=== PATIENT | male | born 1975 | race Caucasian/White ===

== ENCOUNTER 2019-03-12 14:16 | Inpatient (IN) | payer MEDICARE, SELFPAY ==
[2019-03-12] VITALS (8 sets, daily range): BP systolic 149–174; BP diastolic 76–107; PULSE 79–97; RESP 17–22; TEMP 36.6–36.9; O2SAT 93–99; BMI 35.5; BMI 35.9; BMI 36.0
--- NOTE | 2019-03-12 14:19 | EKG12_ITS ---
Test Reason : CP Blood Pressure : / mmHG Vent. Rate : 068 BPM Atrial Rate : 068 BPM P-R Int : 126 ms QRS Dur : 112 ms QT Int : 424 ms P-R-T Axes : 011 022 038 degrees QTc Int : 450 ms Normal sinus rhythm Normal ECG Confirmed by PRETTY MACIAS, PRISCA ([id number]), market editor SAMANTHA MARINA ([id number]) on 03/14/2019 9:43:50 AM Referred By: LATESHA Confirmed By:PRISCA OLSEN MD
[2019-03-12 14:44] LABS: Absolute Lymphocyte Count 1.31 X10^3/uL (0.83-4.51); Absolute Neutrophil Count 16.3 X10^3/uL (2.0-7.7); Basophil# 0.07 X10^3/uL; Basophil% 0.4 % (0-1); Eosinophil# 0.02 X10^3/uL; Eosinophils% 0.1 % (0-5); Hematocrit 48.9 % (40-54); Hemoglobin 16.6 g/dL (13.0-16.5); Lymphocyte # 1.31 X10^3/ul (4.0); Lymphocyte % 7.1 % (19-41); Mean Corp Hgb Conc 33.9 g/dL (32-36); Mean Corpuscular Hgb 29.5 pg (27.0-32.0); Mean Corpuscular Volume 86.9 fL (80-94); Mean Platelet Vol. 10.6 fl (6.2-12.0); Monocyte# 0.78 X10^3/uL; Monocyte% 4.2 % (0-10); NRBC Flagged by Analyzer 0 % (0-5); Neutrophil # 16.27 X10^3/uL (2.7-7.7); Neutrophil % 87.9 % (47-70); Platelet Count 318 K/mm3 (150-450); RBC Distribution Width CV 12.9 % (11.6-14.6); RBC Distribution Width SD 40.4 fl (35.1-43.9); Red Blood Count 5.63 M/mm3 (4.6-6.2); White Blood Count 18.5 K/mm3 (4.4-11.0)
--- NOTE | 2019-03-12 15:05 | RAD_ITS ---
STUDY: X-RAY CHEST REASON FOR EXAM: Male, 44 years old. EPIGASTRIC CHEST PAIN TECHNIQUE: AP COMPARISON: None. FINDINGS: The lungs are clear and expanded. There is no demonstrated pleural abnormality. Normal size heart. Normal mediastinum and rebecca. Normal visualized pulmonary arteries. Normal visualized aortic arch and descending thoracic aorta. Normal visualized thoracic spine. Normal visualized ribs, clavicles, and shoulders. There is no demonstrated abnormality of the visualized soft tissue structures of the upper abdomen. RAD/Chest 1 View (Portable) IMPRESSION: Nonacute portable x-ray examination of the chest. Electronically Signed: Syd Welsh MD (Brooks) at 15:51 EST , Service support ,
[2019-03-12 15:08] LABS: Anion Gap 4 (5-15); BUN 8 mg/dL (7-18); BUN/Creat Ratio 8.2 RATIO (10-20); Calcium,Total 9.1 mg/dL (8.5-10.1); Chloride 108 mmol/L (98-107); Creatinine, Serum 0.98 mg/dL (0.70-1.30); EST Glomerular Filtration Rate 88 mL/min (>60); Est Glom Filt Rate - Afr Amer 107 mL/min (>60); Estimated Creatinine Clearance 93.06 ml/min; Glucose 130 mg/dL (74-106); Potassium 4.4 mmol/L (3.5-5.1); Sodium Level 141 mmol/L (136-145)
--- NOTE | 2019-03-12 15:09 | CT_ITS ---
STUDY: CT ABDOMEN AND PELVIS WITH CONTRAST REASON FOR EXAM: Male, 44 years old. EPIGASTRIC PAIN TODAY RADIATION DOSAGE (If Supplied By Facility): CTDIvol = ( 20.10 ) mGy, DLP = ( 1330.79 ) mGycm TECHNIQUE: Transaxial images were obtained from the dome of the diaphragm to the symphysis pubis without oral contrast. IV 100mL Isovue-300 was administered. Sagittal and coronal images were reconstructed. Individualized dose optimization techniques were used for this CT. COMPARISON: None. FINDINGS: The visualized lung bases are unremarkable. The visualized portions of the heart are within normal limits. Normal liver. There are gallstones but no gallbladder wall thickening. Normal spleen. Normal pancreas. Normal bilateral adrenal glands. Normal right kidney. Normal left kidney. Normal visualized stomach. Normal small intestine. The colon is largely decompressed (transverse/descending) without evidence of pericolonic stranding. There is non-visualization of the appendix. Normal abdominal aorta. Normal inferior vena cava. Normal retroperitoneum. Circumferential wall thickening with trace amount of pericystic induration may suggest cystitis. There is a small fat-containing inguinal hernias. Small periumbilical fat-containing hernia. There are diffuse degenerative changes of the visualized lumbar spine. CT/Abdomen/Pelvis W IV Cont ONLY IMPRESSION: 1. Circumferential wall thickening of the urinary bladder with mild pericystic induration suggesting cystitis. Correlation with urinalysis recommended. 2. Gallstones without CT evidence of acute cholecystitis. 3. Limited evaluation of the transverse and descending colon due to lack of distention. No pericolonic stranding/inflammation seen. Electronically Signed: Syd Welsh MD (Brooks) at 16:16 EST , Service support ,
--- NOTE | 2019-03-12 15:13 | ED.DCSUM_ITS ---
History of Present Illness Narrative: 44-year-old male presents with concern for epigastric pain. States it began approximately 4 hours ago. States that it was after he ate a meal of ham, eggs, and toast. States it is sharp in nature and is gotten progressively worse. Denies any chest pain or shortness of breath. Admits to diaphoresis. Some nausea and vomiting. Denies any constipation or diarrhea. Denies any urinary symptoms. Denies any trauma. She is deaf but is signing through a family member. <Scotty Coburn - Last Filed: 03/12/19 18:15> <Tushar Lawton - Last Filed: 03/12/19 20:22> Chief Complaint: Chest Pain Past Medical History Prior records reviewed: Yes Past Medical History: None Surgical History: no surgical history Alcohol: None Drugs: None <Scotty Coburn - Last Filed: 03/12/19 18:15> <Tushar Lawton - Last Filed: 03/12/19 20:22> - Allergies and Home Meds Allergies/Adverse Reactions: Allergies No Known Allergies Allergy (Verified 03/12/19 14:17) Primary Care Physician: NOT,DEFINED [NON-STAFF] - Review of Systems General: Reports: Sweats. Denies: Chills, Fever Eyes: Denies: Visual changes - bilaterally, Diplopia ENT: Denies: Rhinorrhea, Sore throat Cardiovascular: Denies: Chest pain, Palpitations Respiratory: Denies: Dyspnea, Cough, Dyspnea on exertion Gastrointestinal: Reports: Abdominal pain, Nausea, Vomiting. Denies: Diarrhea, Melena, Hematochezia Genitourinary: Denies: Dysuria, Hematuria, Frequency Musculoskeletal: Denies: Back pain, Extremity Pain Skin: Denies: Rash, Wounds Neurological: Denies: Headache, Weakness, Numbness <Scotty Coburn - Last Filed: 03/12/19 18:15> Physical Exam Vital Signs/Narrative: Vital Signs Temp Pulse Resp BP Pulse Ox 03/12/19 14:17 97.9 F 79 18 166/107 H 99 Inital Vital Signs reviewed: Yes General: Well nourished, Well developed, Acute Distress Head: Normocephalic, Atraumatic Eyes: Perrl, EOMI ENT: Moist mucous membranes, No rhinorrhea Neck: Supple, Nontender Cardiovascular: Regular rate, Regular rhythm, No murmurs Respiratory: No distress, CTA bilaterally, Chest nontender Abdomen: Soft, Nondistended, Normal bowel sounds, Tender Back: Nontender, Normal Inspection Extremities: Nontender, No edema Skin: Normal color, No rash Neurological: Alert, Oriented x3, Cranial nerves II-XII grossly intact, Normal Strength, Normal Sensation Psychological: Normal affect, Normal Mood <Scotty Coburn - Last Filed: 03/12/19 18:15> Vital Signs/Narrative: Vital Signs Pulse Resp BP Pulse Ox 03/12/19 19:18 83 17 155/79 H 99 03/12/19 17:38 90 18 149/97 H 96 03/12/19 17:08 82 19 H 174/92 H 99 <Tushar Lawton - Last Filed: 03/12/19 20:22> Diagnostic/Tx/Re-eval Impressions Chest X-Ray 03/12/19 15:05 IMPRESSION: Nonacute portable x-ray examination of the chest. Electronically Signed: Syd Welsh MD (Brooks) at 15:51 EST , Service support , Abdomen/Pelvis CT 03/12/19 15:09 IMPRESSION: 1. Circumferential wall thickening of the urinary bladder with mild pericystic induration suggesting cystitis. Correlation with urinalysis recommended. 2. Gallstones without CT evidence of acute cholecystitis. 3. Limited evaluation of the transverse and descending colon due to lack of distention. No pericolonic stranding/inflammation seen. Electronically Signed: Syd Welsh MD (Brooks) at 16:16 EST , Service support , 03/12/19 15:05 Chest 1 View (Portable) [RAD] Stat 03/12/19 15:09 CT Abd [Abdomen/Pelvis W IV Cont ONLY] [CT] Stat 03/12/19 16:28 Abdomen Limited [US] Stat Laboratory Results 03/12/19 03/12/19 03/12/19 14:36 14:36 14:39 WBC 18.5 H RBC 5.63 Hgb 16.6 H Hct 48.9 MCV 86.9 MCH 29.5 MCHC 33.9 RDW Std Deviation 40.4 RDW Coeff of Bimal 12.9 Plt Count 318 MPV 10.6 Immature Gran % (Auto) 0.300 Neut % (Auto) 87.9 H Lymph % (Auto) 7.1 L [place] % (Auto) 4.2 Eos % (Auto) 0.1 Baso % (Auto) 0.4 Absolute Neuts (auto) 16.3 H Absolute Lymphs (auto) 1.31 Nucleated RBC % 0 Sodium 141 Potassium 4.4 Chloride 108 H Carbon Dioxide 29.0 Anion Gap 4 L BUN 8 Creatinine 0.98 Estim Creat Clear Calc 93.06 Est GFR (MDRD) Af Amer 107 Est GFR (MDRD) Non-Af 88 BUN/Creatinine Ratio 8.2 L Glucose 130 H Calcium 9.1 Total Bilirubin 1.40 H Direct Bilirubin 0.20 AST 29 ALT 19 Alkaline Phosphatase 86 Troponin I < 0.015 Total Protein 7.7 Albumin 4.0 Globulin 3.7 Lipase 69 L Urine Color Urine Clarity Urine pH Ur Specific [place] Urine Protein Urine Glucose (UA) Urine Ketones Urine Occult Blood Urine Nitrite Urine Bilirubin Urine Urobilinogen Ur Leukocyte Esterase Urine RBC Urine WBC Ur Squamous Epith Cells Urine Bacteria Urine Mucus 03/12/19 17:32 WBC RBC Hgb Hct MCV MCH MCHC RDW Std Deviation RDW Coeff of Bimal Plt Count MPV Immature Gran % (Auto) Neut % (Auto) Lymph % (Auto) [place] % (Auto) Eos % (Auto) Baso % (Auto) Absolute Neuts (auto) Absolute Lymphs (auto) Nucleated RBC % Sodium Potassium Chloride Carbon Dioxide Anion Gap BUN Creatinine Estim Creat Clear Calc Est GFR (MDRD) Af Amer Est GFR (MDRD) Non-Af BUN/Creatinine Ratio Glucose Calcium Total Bilirubin Direct Bilirubin AST ALT Alkaline Phosphatase Troponin I Total Protein Albumin Globulin Lipase Urine Color Yellow Urine Clarity Sl. Cloudy Urine pH 5.0 Ur Specific [place] 1.010 Urine Protein Negative Urine Glucose (UA) Normal Urine Ketones Negative Urine Occult Blood Negative Urine Nitrite Negative Urine Bilirubin Negative Urine Urobilinogen Normal Ur Leukocyte Esterase Negative Urine RBC 0 SEEN Urine WBC 0 SEEN Ur Squamous Epith Cells 0-5 SEEN Urine Bacteria 0 SEEN Urine Mucus 0 SEEN - Rhythm Strip Rhythm Strip: Sinus Rhythm Rate: 68 Ectopy: None - EKG Initial EKG Interpretation: Sinus Rhythm - Normal sinus rhythm at 68 bpm. ND interval 126 ms. QTc 450 ms. No evidence of ST elevation or depression at this time. - Medical Decision Making Diaphoretic with acute abdominal pain upon arrival. Epigastric in nature. EKG nonischemic. Lab work shows leukocytosis of 18,000. CT reveals stranding around the bladder with large gallstones as well. For this reason right upper quadrant ultrasound will be done. Patient has been dosed with 3 separate doses of narcotic pain medication. He was also given Zofran and a fluid bolus. Patient was signed out to Dr. Kang Lawton at 1800 pending ultrasound. <Scotty Coburn - Last Filed: 03/12/19 18:15> - Medical Decision Making I saw the patient with the resident. The patient has epigastric abdominal pain with diaphoresis. No history of this before. He does have epigastric tenderness. No guarding or rebound. Heart regular. Lungs clear. Work-up showed leukocytosis. CT showed gallstones and cystitis. He has a bilirubin of 1.4. Subsequent ultrasound was ordered which showed hepatomegaly, sonographic Ralph sign, gallbladder thickening, and a large stone. I suspect this is cholecystitis. He was treated with IV Zosyn. He is known to Dr. Dominguez and so Dr. Ernandez was consulted to evaluate the patient for further care. <Tushar Lawton - Last Filed: 03/12/19 20:22> ED Disposition <Scotty Coburn - Last Filed: 03/12/19 18:15> <Tushar Lawton - Last Filed: 03/12/19 20:22> - Plan for ED Patient: Referrals: NOT,DEFINED [NON-STAFF] -
[2019-03-12] MEDS: 0.9% Normal Saline 1,000 ML 999 ML IV (15:34)
[2019-03-12] MEDS: Morphine 4 MG/ML Syringe IV (15:34)
[2019-03-12] MEDS: Ondansetron 4 MG/2 ML Vial IV (15:34)
[2019-03-12 15:55] LABS: AST(SGOT) 29 U/L (15-37); Alanine Aminotransfer ALT/SGPT 19 U/L (16-61); Alkaline Phosphatase 86 U/L (45-117); Globulin 3.7 g/dL (2.2-4.2); Lipase 69 U/L (73-393); Protein, Total 7.7 g/dL (6.4-8.2)
[2019-03-12] MEDS: HYDROmorphone 1 MG/ML Syringe IV ×3 (15:57→20:57)
--- NOTE | 2019-03-12 16:28 | US_ITS ---
STUDY: ABDOMINAL ULTRASOUND - RIGHT UPPER QUADRANT REASON FOR VISIT: Male, 44 years old RUQ PAIN X 1 DAY W/ N/V -- HX OF APPENDECTOMY 1979 TECHNIQUE: Ultrasound evaluation of the right upper quadrant was performed with real-time and static renteria-scale imaging. TECHNICAL QUALITY: Limited. Examination limited by bowel gas. COMPARISON: CT abdomen and pelvis earlier FINDINGS: Liver: The liver measures 19.8 cm. There is normal echogenicity of the liver. The bile ducts are within normal limits. There is hepatic color flow. The direction of portal flow is hepatopetal. There is no demonstrated mass lesion. Gallbladder: Normal distended gallbladder. The gallbladder wall measures 3.4 mm. There is a positive sonographic Ralph''s sign. There is no pericholecystic fluid. Solitary gallstone noted without shadowing. Also measuring 3.2 x 2.7 x 2.4 cm. Also, there is gallbladder sludge. Common Bile Duct (C.B.D.): The common bile duct measures 4.8 mm. Pancreas: Normal size of the head, body and tail of the pancreas. There is increased echogenicity of the pancreas. There is no demonstrated pancreatic mass or cyst. Right Kidney: Normal size of the right kidney. The right kidney measures 12.4 cm. Normal renal cortex. The right cortex measures 1.5 cm. There is no demonstrated renal mass or cyst. There is no right hydronephrosis. US/Abdomen Limited IMPRESSION: Borderline hepatomegaly. Positive sonographic Ralph sign with borderline gallbladder wall thickening. No evidence of pericholecystic fluid. Large gallstone with gallbladder sludge as above. Nonspecific echogenic appearance of the pancreas Electronically Signed: Yovany Hernandez DO at 19:42 EST Tel , Service support ,
[2019-03-12 17:37] LABS: Bacteria 0 SEEN /hpf (None Seen); Mucous, Urine 0 SEEN /hpf (<or=2+); Red Blood Cells-Urine 0 SEEN /hpf (0-5); White Blood Cells 0 SEEN /hpf (0-5)
[2019-03-12 17:39] LABS: Color, Urine Yellow (Yellow); Glucose, Dipstick Normal (Normal); Ketone-Dipstick Negative (Negative); Leukocyte Esterase-Dipstick Negative /ul (Negative); Nitrite-Dipstick Negative (Negative); Occult Blood-Urine Negative /ul (Negative); Protein-Dipstick Negative (Negative); Urine Bilirubin Dipstick Negative (Negative); Urine Clarity Sl. Cloudy (Clear); Urine Urobilinogen Normal (Normal)
[2019-03-12 17:47] LABS: Squamous Epithelial Cells - UA 0-5 SEEN /hpf (0-5)
--- NOTE | 2019-03-12 20:53 | PCM.HP.STD ---
Problem List (1) Acute cholecystitis Status: Acute History of Present Illness Date of Admission: 03/12/19 The patient is a 44 year old M who presented with epigastric and right upper quadrant pain. He reports he went to [place] this morning and he ate before baptism. I was way home from [place] he started having abdominal pain and vomiting. He reports the pain does radiate to the back. He has not had any pain leading up to this. He does not have any fevers or chills. Past Medical History Allergies No Known Allergies Allergy (Verified 03/12/19 14:17) Home Medications: Ambulatory Orders Medication Instructions Recorded Dextroamphetamine/Amphetamine 20 mg PO BID 03/12/19 [Dextroamp-Amphetamin 20 mg Tab] Surgical History: appendectomy, tonsillectomy Smoking Status: Never smoker Tobacco Use: Chew Alcohol: None Drugs: None - *Family History Maternal History Items: No pertinent history Review of Systems Constitutional: Denies: Anorexia, Fever Cardiovascular: Denies: Chest Pain Respiratory: Denies: Shortness of Breath Gastrointestinal: Reports: Abdominal Pain, Nausea, Vomiting. Denies: Constipation, Diarrhea Genitourinary: Denies: Dysuria Skin: Denies: Jaundice Neurological: Denies: Balance problems Psychiatric: Denies: Anxiety Hematologic/ Lymphatic: Denies: Anemia VTE Information - Inpt Only VTE Present on Admission: No VTE Mechan Device Prophylaxis: SCD's Patient Problems: Active and Suspected Problems Acute cholecystitis (Acute) - Physical Exam Vitals/I&O's: Vital Signs Temp Pulse Resp BP Pulse Ox 97.9 F 97 22 H 160/95 H 97 03/12/19 14:17 03/12/19 20:45 03/12/19 20:45 03/12/19 20:45 03/12/19 20:45 Oxygen Delivery Method Room Air Weight: 233 lb 14.567 oz Body Mass Index (BMI) 35.5 Intake and Output for Last 24 Hours 03/10/19 03/11/19 03/12/19 23:59 23:59 23:59 Intake Total 1000 / 1000 Balance 1000 / 1000 General: Alert, Oriented x3 HEENT: Atraumatic Neck: Supple Lungs: Normal air movement Cardiovascular: Regular rate, Regular Rhythm Abdomen: Soft, Non-Distended, Obese, Tender - Very tender in the right upper quadrant. The rest of the abdomen is nontender. Extremities: No clubbing Skin: No breakdown Musculoskeletal: No Muscle Wasting Neurological: Cranial nerves II-XII grossly intact Psych/Mental Status: Normal Affect Laboratory Results 03/12/19 14:36: WBC 18.5 H, RBC 5.63, Hgb 16.6 H, Hct 48.9, MCV 86.9, MCH 29.5, MCHC 33.9, RDW Std Deviation 40.4, RDW Coeff of Bimal 12.9, Plt Count 318, MPV 10.6, Immature Gran % (Auto) 0.300, Neut % (Auto) 87.9 H, Lymph % (Auto) 7.1 L, [place] % (Auto) 4.2, Eos % (Auto) 0.1, Baso % (Auto) 0.4, Absolute Neuts (auto) 16.3 H, Absolute Lymphs (auto) 1.31, Nucleated RBC % 0 03/12/19 14:36: Sodium 141, Potassium 4.4, Chloride 108 H, Carbon Dioxide 29.0, Anion Gap 4 L, BUN 8, Creatinine 0.98, Estim Creat Clear Calc 93.06, Est GFR (MDRD) Af Amer 107, Est GFR (MDRD) Non-Af 88, BUN/Creatinine Ratio 8.2 L, Glucose 130 H, Calcium 9.1, Troponin I < 0.015 03/12/19 14:39: Total Bilirubin 1.40 H, Direct Bilirubin 0.20, AST 29, ALT 19, Alkaline Phosphatase 86, Total Protein 7.7, Albumin 4.0, Globulin 3.7, Lipase 69 L 03/12/19 17:32: Urine Color Yellow, Urine Clarity Sl. Cloudy, Urine pH 5.0, Ur Specific [place] 1.010, Urine Protein Negative, Urine Glucose (UA) Normal, Urine Ketones Negative, Urine Occult Blood Negative, Urine Nitrite Negative, Urine Bilirubin Negative, Urine Urobilinogen Normal, Ur Leukocyte Esterase Negative, Urine RBC 0 SEEN, Urine WBC 0 SEEN, Ur Squamous Epith Cells 0-5 SEEN, Urine Bacteria 0 SEEN, Urine Mucus 0 SEEN Clinical Impression(s) from Imaging Studies Chest X-Ray 03/12/19 15:05 IMPRESSION: Nonacute portable x-ray examination of the chest. Electronically Signed: Syd Welsh MD (Brooks) at 15:51 EST , Service support , Abdomen/Pelvis CT 03/12/19 15:09 IMPRESSION: 1. Circumferential wall thickening of the urinary bladder with mild pericystic induration suggesting cystitis. Correlation with urinalysis recommended. 2. Gallstones without CT evidence of acute cholecystitis. 3. Limited evaluation of the transverse and descending colon due to lack of distention. No pericolonic stranding/inflammation seen. Electronically Signed: Syd Welsh MD (Brooks) at 16:16 EST , Service support , Abdomen Ultrasound 03/12/19 16:28 IMPRESSION: Borderline hepatomegaly. Positive sonographic Ralph sign with borderline gallbladder wall thickening. No evidence of pericholecystic fluid. Large gallstone with gallbladder sludge as above. Nonspecific echogenic appearance of the pancreas Electronically Signed: Yovany Hernandez DO at 19:42 EST Tel , Service support , Assessment/Plan All Active Problems Acute cholecystitis (Acute) 44-year-old male with cholecystitis 1. Patient has nausea and vomiting and right upper quadrant pain. He has an elevated white count with left shift. CT scan shows 2 very large gallstones in the gallbladder. Ultrasound shows borderline thickening of gallbladder wall with positive Ralph sign. 2. I discussed the findings with the patient and his mother who is acting as his financial advocate as he is deaf. I discussed laparoscopic cholecystectomy with the patient. I discussed the possibility of having to convert to open procedure. I will admit the patient and continue antibiotics and pain medication. Plan for laparoscopic cholecystectomy tomorrow. 3. I discussed the procedure in detail with the patient. I discussed the risks, benefits, and alternatives of the procedure. I discussed the risks including but not limited to bleeding, infection, injury to surrounding organs such as the liver, bile duct, bowels. I did discuss the possibility of having to convert to an open procedure as well as the possibility that if any injuries occurred this may necessitate further surgery at a tertiary care center. Jayson Ernandez MD Pager: [facility] [address] [place] [address], [facility] [address] [place] [address] Office:
[2019-03-12] MEDS: 0.9% Normal Saline 1,000 ML 125 ML IV (22:07)
[2019-03-13] VITALS (13 sets, daily range): BP systolic 114–160; BP diastolic 72–100; PULSE 52–113; RESP 16–20; TEMP 37.1–37.6; O2SAT 92–99; BMI 35.9
[2019-03-13] MEDS: HYDROmorphone 1 MG/ML Syringe IV ×4 (02:41→21:58)
[2019-03-13] MEDS: Piperacil/Tazobactam 3.375 GM/50 ML ML IV ×3 (04:08→20:56)
[2019-03-13 05:39] LABS: Absolute Lymphocyte Count 1.83 X10^3/uL (0.83-4.51); Absolute Neutrophil Count 12.1 X10^3/uL (2.0-7.7); Basophil# 0.02 X10^3/uL; Basophil% 0.1 % (0-1); Eosinophil# 0.03 X10^3/uL; Eosinophils% 0.2 % (0-5); Hematocrit 42.7 % (40-54); Hemoglobin 14.2 g/dL (13.0-16.5); Lymphocyte # 1.83 X10^3/ul (4.0); Lymphocyte % 11.7 % (19-41); Mean Corp Hgb Conc 33.3 g/dL (32-36); Mean Corpuscular Hgb 29.2 pg (27.0-32.0); Mean Corpuscular Volume 87.9 fL (80-94); Mean Platelet Vol. 10.4 fl (6.2-12.0); Monocyte# 1.54 X10^3/uL; Monocyte% 9.9 % (0-10); NRBC Flagged by Analyzer 0 % (0-5); Neutrophil % 77.7 % (47-70); POSITIVE DIFFERENTIAL YES; Platelet Count 284 K/mm3 (150-450); RBC Distribution Width CV 13.2 % (11.6-14.6); RBC Distribution Width SD 42.5 fl (35.1-43.9); Red Blood Count 4.86 M/mm3 (4.6-6.2); White Blood Count 15.6 K/mm3 (4.4-11.0)
[2019-03-13 06:08] LABS: Differential Indicated SCAN CRITERIA MET
[2019-03-13 06:14] LABS: AST(SGOT) 179 U/L (15-37); Alanine Aminotransfer ALT/SGPT 89 U/L (16-61); Albumin, Serum 3.1 g/dL (3.2-5.0); Alkaline Phosphatase 84 U/L (45-117); Anion Gap 5 (5-15); BUN 6 mg/dL (7-18); BUN/Creat Ratio 7.1 RATIO (10-20); Calcium,Total 7.6 mg/dL (8.5-10.1); Chloride 106 mmol/L (98-107); Creatinine, Serum 0.85 mg/dL (0.70-1.30); EST Glomerular Filtration Rate 104 mL/min (>60); Est Glom Filt Rate - Afr Amer 126 mL/min (>60); Estimated Creatinine Clearance 107.29 ml/min; Globulin 3.1 g/dL (2.2-4.2); Glucose 134 mg/dL (74-106); Magnesium 1.9 mg/dL (1.6-2.6); Phosphorus 3.5 mg/dL (2.5-4.9); Potassium 4.2 mmol/L (3.5-5.1); Protein, Total 6.2 g/dL (6.4-8.2); Sodium Level 139 mmol/L (136-145)
[2019-03-13] MEDS: 0.9% Normal Saline 1,000 ML 125 ML IV ×2 (06:15→15:11)
[2019-03-13 06:33] LABS: Differential Comment SCANNED
--- NOTE | 2019-03-13 07:51 | PN.SURG_ITS ---
Patient Problems: Active and Suspected Problems Acute cholecystitis (Acute) Subjective: Patient is still having right upper quadrant pain but he does say there is some improvement. No nausea or vomiting overnight. - Physical Exam Vitals/I&O's: Vital Signs Temp Pulse Resp BP Pulse Ox 99.6 F H 52 L 18 114/84 H 94 03/13/19 04:10 03/13/19 04:10 03/13/19 04:10 03/13/19 04:10 03/13/19 04:10 Oxygen Delivery Method Room Air Weight: 236 lb 8.896 oz Body Mass Index (BMI) 35.9 Intake and Output for Last 24 Hours 03/11/19 03/12/19 03/13/19 23:59 23:59 23:59 Intake Total 1289.17 / 1289.17 889.83 / 889.83 Balance 1289.17 / 1289.17 889.83 / 889.83 General: Alert, Oriented x3 Neck: No JVD Lungs: Normal air movement Abdomen: Soft, Tender - Tender in the right upper quadrant. Rest of the abdomen is nontender Skin: No rashes Musculoskeletal: No Muscle Wasting Neurological: Cranial nerves II-XII grossly intact Psych/Mental Status: Normal Affect Laboratory Results 03/12/19 14:36: WBC 18.5 H, RBC 5.63, Hgb 16.6 H, Hct 48.9, MCV 86.9, MCH 29.5, MCHC 33.9, RDW Std Deviation 40.4, RDW Coeff of Bimal 12.9, Plt Count 318, MPV 10.6, Immature Gran % (Auto) 0.300, Neut % (Auto) 87.9 H, Lymph % (Auto) 7.1 L, [place] % (Auto) 4.2, Eos % (Auto) 0.1, Baso % (Auto) 0.4, Absolute Neuts (auto) 16.3 H, Absolute Lymphs (auto) 1.31, Nucleated RBC % 0 03/12/19 14:36: Sodium 141, Potassium 4.4, Chloride 108 H, Carbon Dioxide 29.0, Anion Gap 4 L, BUN 8, Creatinine 0.98, Estim Creat Clear Calc 93.06, Est GFR (MDRD) Af Amer 107, Est GFR (MDRD) Non-Af 88, BUN/Creatinine Ratio 8.2 L, Glucose 130 H, Calcium 9.1, Troponin I < 0.015 03/12/19 14:39: Total Bilirubin 1.40 H, Direct Bilirubin 0.20, AST 29, ALT 19, Alkaline Phosphatase 86, Total Protein 7.7, Albumin 4.0, Globulin 3.7, Lipase 69 L 03/12/19 17:32: Urine Color Yellow, Urine Clarity Sl. Cloudy, Urine pH 5.0, Ur Specific [place] 1.010, Urine Protein Negative, Urine Glucose (UA) Normal, Urine Ketones Negative, Urine Occult Blood Negative, Urine Nitrite Negative, Urine Bilirubin Negative, Urine Urobilinogen Normal, Ur Leukocyte Esterase Negative, Urine RBC 0 SEEN, Urine WBC 0 SEEN, Ur Squamous Epith Cells 0-5 SEEN, Urine Bacteria 0 SEEN, Urine Mucus 0 SEEN 03/13/19 05:16: WBC 15.6 H, RBC 4.86, Hgb 14.2, Hct 42.7, MCV 87.9, MCH 29.2, MCHC 33.3, RDW Std Deviation 42.5, RDW Coeff of Bimal 13.2, Plt Count 284, MPV 10.4, Immature Gran % (Auto) 0.400, Neut % (Auto) 77.7 H, Lymph % (Auto) 11.7 L, [place] % (Auto) 9.9, Eos % (Auto) 0.2, Baso % (Auto) 0.1, Absolute Neuts (auto) 12.1 H, Absolute Lymphs (auto) 1.83, Nucleated RBC % 0, Differential Comment SCANNED, Diff Path Review July03/13/19 05:16: Sodium 139, Potassium 4.2, Chloride 106, Carbon Dioxide 28.0, Anion Gap 5, BUN 6 L, Creatinine 0.85, Estim Creat Clear Calc 107.29, Est GFR (MDRD) Af Amer 126, Est GFR (MDRD) Non-Af 104, BUN/Creatinine Ratio 7.1 L, Glucose 134 H, Calcium 7.6 L, Phosphorus 3.5, Magnesium 1.9, Total Bilirubin 4. 80 H, AST 179 H, ALT 89 H, Alkaline Phosphatase 84, Total Protein 6.2 L, Albumin 3.1 L, Globulin 3.1, Albumin/Globulin Ratio 1.0 Current Medications Acetaminophen (Tylenol) 650 mg PO Q6H PRN PRN PRN Reason: Pain Score 1-10/10 Hydromorphone HCl (Dilaudid Inj) 1 - 2 mg IV Q2H PRN PRN PRN Reason: Pain Score 6-10/10 Last Admin: 03/13/19 02:41 Dose: 1 mg Documented by: Sodium Chloride () 250 mls @ 15 mls/hr IV .[id number] PRN PRN Reason: Saline Flush Last Infusion: 03/13/19 04:09 Dose: 0 mls/hr Documented by: Sodium Chloride () 250 mls @ 15 mls/hr IV .[id number] PRN PRN Reason: Additional IVPB Infusion Pantoprazole Sodium 40 mg/ (Sodium Chloride) 110 mls @ 330 mls/hr IV Q24 ADELFO Last Infusion: 03/12/19 23:08 Dose: Infused Documented by: Sodium Chloride () 1,000 mls @ 125 mls/hr IV .Q8H ADELFO Last Admin: 03/13/19 06:15 Dose: 125 mls/hr Documented by: Piperacillin Sod/Tazobactam Sod (Zosyn) 3.375 gm in 50 mls @ 12.5 mls/hr IV Q8 ADELFO Last Admin: 03/13/19 04:08 Dose: 12.5 mls/hr Documented by: Sodium Chloride () 250 mls @ 15 mls/hr IV .[id number] PRN PRN Reason: Saline Flush Sodium Chloride () 250 mls @ 15 mls/hr IV .[id number] PRN PRN Reason: Additional IVPB Infusion Influenza Virus Vaccine Quadrival (Flucelvax /Fluzone ) 0.5 ml IM .ONCE ONE Stop: 03/13/19 10:01 Ondansetron HCl (Zofran) 4 mg IV Q6H PRN PRN PRN Reason: NAUSEA/VOMITING Sodium Chloride () 10 - 40 ml IV UD PRN PRN Reason: SALINE FLUSH Medical Necessity - Tobacco Use Smoking Status: Never smoker Tobacco Use: Chew Assessment/Plan All Active Problems Acute cholecystitis (Acute) 44-year-old male with acute cholecystitis 1. The patient is still having right upper quadrant pain and his white count has slightly responded to antibiotics. His bilirubin has elevated but I believe this is due to the cholecystitis. I will take him this afternoon for laparoscopic cholecystectomy. Continue antibiotics and n.p.o. Jayson Ernandez MD Pager: [facility] [address] [place] [address] [address] [place] [address] Office:
--- NOTE | 2019-03-13 11:52 | CASEMGMT ---
Social Work Note Per gift consultant questions pt hasn't completed HCPOA or LW and doesn't want information. Maylin Almeida [employer], [employer]
--- NOTE | 2019-03-13 12:10 | NURSING ---
AC CALLED REPORT FOR PRE-OP. NO FAMILY AT BEDSIDE.
--- NOTE | 2019-03-13 12:15 | CASEMGMT ---
RN CM attempted to see patient for RN CM Assessment. Patient out of room for procedure. RN CM will attempt again at later time.
[2019-03-13 12:25] LABS: Pathologist Review Reviewed
--- NOTE | 2019-03-13 12:45 | GALL_PTH ---
PATIENT: ISABEL CARTER LOC: MS3 U#:[id number] AGE/SX: 44/M ROOM: MS314 RE03/12/[address]: Dr. Jayson Ernandez MD : 1975 BED: 1 DIS: 03/15/2019 SPEC #: [id number] RECD: 03/13/19 15:54 STATUS: AIDEN RETheron #: [id number] BERNARD: 03/13/19 12:[address]: Jayson Ernandez DEPT: SURGICAL PATHOLOGY RECD BY: Erik Schneider ENTERED: 03/14/19 10:46 SP TYPE: ANDREW WORLEY DR: No Primary Care Phys Tissues: Gallbladder, NOS Procedures: Surgery Specimen Level III HEADER OPERATION: Laparoscopic cholecystectomy with IOC PRE-OP DIAGNOSIS: Acute cholecystitis TISSUE SUBMITTED: Gallbladder MICROSCOPIC DIAGNOSIS Gallbladder, cholecystectomy: Acute and chronic ulcerated cholecystitis and cholelithiasis. Reactive epithelial changes. SJ:alyson 03/16/19 MICROSCOPIC DESCRIPTION Slides are reviewed. GROSS DESCRIPTION Received is one container labeled with the patient's name and designated gallbladder. The specimen consists of a gallbladder measuring 10 x 4 x 4 cm. The external surface is smooth and glistening. Focally, it is granular, hemorrhagic and contains cautery artifact. The lumen of the gallbladder contains yellow-green mucoid bile and two black faceted stones ranging in size from 2.6 to 3.2 cm in greatest dimension. The mucosa is bile-stained and without any mass lesions. The gallbladder wall averages 0.2 cm in thickness and is free of mass lesions. Long Term Care Pharmacist sections of the gallbladder and the cystic duct are submitted in one cassette. / AM:alyson 03/14/19 TC:2 [facility]: [id number]
--- NOTE | 2019-03-13 13:39 | RAD_ITS ---
CLINICAL HISTORY: Male, 44 years old. Laparoscopic cholecystectomy. PROCEDURE: CHOLANGIOGRAM - Comment: Fluoroscopy services provided for clinical procedure. Please refer to operating physician''s procedure note for additional detail. FLUOROSCOPY TIME (if supplied): (15.7 seconds) minutes/seconds TECHNIQUE: Opacified intrahepatic and extra hepatic bile ducts are without evidence of filling defects/calculi. Opacified duodenal C-sweep appears unremarkable. There is a contrast leak in the gallbladder bed region. RAD/Cholangiogram/ O R,Initial IMPRESSION: Opacified intrahepatic and extra hepatic bile ducts are without evidence of filling defects/calculi. Opacified duodenal C-sweep appears unremarkable. There is a contrast leak in the gallbladder bed region. Electronically Signed: Angel Otto MD at 7:46 EST , Service support ,
[2019-03-13] MEDS: Bupiv/Epi 0.25% 30 ML Vial (14:24)
--- NOTE | 2019-03-13 19:22 | OP.PCM_ITS ---
Problem List (1) Acute cholecystitis Status: Acute Report of Operation Date of Procedure: 03/13/19 Pre-Operative Diagnosis: Acute cholecystitis Post-Operative Diagnosis: Same Surgery/Procedure Performed:: Laparoscopic cholecystectomy with cholangiogram Specimen's removed: Gallbladder with contents Description of Procedure: After obtaining informed consent patient was brought back to the operating room. General anesthesia was induced. The abdomen was prepped and draped in usual sterile fashion. A small midline incision was made superior to the umbilicus an d deepened to the level of fascia. The fascia was elevated and incised. Next the peritoneum was elevated and incised in the same fashion. Finger sweep was performed and the Hernandez trocar was placed into the abdomen. The balloon was inflated. The abdomen was inflated to 15 mmHg. Next a camera was introduced into the abdomen and the abdomen was inspected. Next under direct visualization three 5-mm ports were placed one subxiphoid and 2 subcostal. The gallbladder was aspirated. Next the gallbladder was elevated and retracted toward the right shoulder. The peritoneum was stripped from the gallbladder. Bladder was very inflamed and thickened. The infundibulum was located and retracted laterally. Next the triangle of Calot was dissected and the cystic duct and cystic artery were identified. Cholangiograms were performed. The Aguilar clamp was used to clamp across the infundibulum and the catheter needle was inserted into the gallbladder. Under fluoroscopy contrast was instilled into the gallbladder and the common duct, cystic duct as well as proximal hepatic ducts were identified. There was good filling of the duodenum. There were no filling defects noted in the common bile duct. The clamp was removed as well as the needle and the infundibulum was grasped once more. Three hemolock clips were placed across the cystic duct. The cystic duct was then divided leaving 2 clips on the stump. The cystic artery was clipped and divided in the same fashion. The hook cautery was then used to take the gallbladder off of the gallbladder bed. Hemostasis was obtained. Surgicel powder was placed over the gallbladder fossa. Gallbladder fossa was irrigated and no active bleeding or bile leakage was noted. Next the camera switched to a 5 mm camera and introduced in the subx iphoid port. An Endopouch bag was placed through the umbilical port and the gallbladder was placed into it. The gallbladder was then removed through the umbilical incision. The camera was then reinserted through the umbilical port. The gallbladder fossa was inspected once more and noted to be hemostatic with no leaking bile. The abdomen was suctioned dry. The 5 mm ports were removed under direct visualization. The umbilical port was then removed and the air was removed from the abdomen. Next using an 0 Vicryl suture the umbilical fascia was closed in a [id number] fashion. The umbilical port site was irrigated local anesthetic was administered to all the incisions. All the incisions were closed with interrupted subcuticular 4-0 Monocryl sutures followed by Steri- Strips and dressings. The patient was awoken and taken to PACU in stable condition. - Admit VTE Documentation VTE Mechan Device Prophylaxis: SCD's
[2019-03-14] VITALS (9 sets, daily range): BP systolic 126–167; BP diastolic 70–101; PULSE 86–112; RESP 18–20; TEMP 36.8–38; O2SAT 92–96
[2019-03-14] MEDS: 0.9% Normal Saline 1,000 ML 125 ML IV ×2 (00:36→08:29)
[2019-03-14] MEDS: 0.9% Saline Lock 10 ML Syringe IV ×3 (00:48→15:46)
[2019-03-14] MEDS: HYDROmorphone 1 MG/ML Syringe IV ×3 (00:48→15:45)
[2019-03-14] MEDS: Piperacil/Tazobactam 3.375 GM/50 ML ML IV ×3 (05:57→22:45)
[2019-03-14] MEDS: Acetaminophen 325 MG Tablet 650 MG PO (06:04)
[2019-03-14 06:55] LABS: Absolute Lymphocyte Count 1.49 X10^3/uL (0.83-4.51); Absolute Neutrophil Count 9.2 X10^3/uL (2.0-7.7); Basophil# 0.05 X10^3/uL; Basophil% 0.4 % (0-1); Eosinophil# 0.04 X10^3/uL; Eosinophils% 0.3 % (0-5); Hematocrit 43.2 % (40-54); Hemoglobin 14.2 g/dL (13.0-16.5); Lymphocyte # 1.49 X10^3/ul (4.0); Lymphocyte % 12.1 % (19-41); Mean Corp Hgb Conc 32.9 g/dL (32-36); Mean Corpuscular Hgb 30.1 pg (27.0-32.0); Mean Corpuscular Volume 91.7 fL (80-94); Mean Platelet Vol. 10.6 fl (6.2-12.0); Monocyte# 1.48 X10^3/uL; NRBC Flagged by Analyzer 0 % (0-5); Neutrophil # 9.23 X10^3/uL (2.7-7.7); Neutrophil % 74.7 % (47-70); Platelet Count 227 K/mm3 (150-450); RBC Distribution Width CV 13.3 % (11.6-14.6); RBC Distribution Width SD 45.5 fl (35.1-43.9); Red Blood Count 4.71 M/mm3 (4.6-6.2); White Blood Count 12.4 K/mm3 (4.4-11.0)
[2019-03-14 07:09] LABS: ALB/GLOB Ratio 0.9 RATIO (0.9-2.4); AST(SGOT) 79 U/L (15-37); Alanine Aminotransfer ALT/SGPT 68 U/L (16-61); Alkaline Phosphatase 101 U/L (45-117); Anion Gap 3 (5-15); BUN 7 mg/dL (7-18); BUN/Creat Ratio 7.6 RATIO (10-20); Calcium,Total 7.5 mg/dL (8.5-10.1); Chloride 103 mmol/L (98-107); Creatinine, Serum 0.92 mg/dL (0.70-1.30); EST Glomerular Filtration Rate 95 mL/min (>60); Est Glom Filt Rate - Afr Amer 115 mL/min (>60); Estimated Creatinine Clearance 99.13 ml/min; Globulin 3.3 g/dL (2.2-4.2); Glucose 95 mg/dL (74-106); Potassium 3.9 mmol/L (3.5-5.1); Protein, Total 6.3 g/dL (6.4-8.2); Sodium Level 136 mmol/L (136-145)
--- NOTE | 2019-03-14 07:42 | PCM.PN.SRG ---
Patient Problems: Active and Suspected Problems Acute cholecystitis (Acute) Subjective: Patient is still in significant pain but he reports it is better than yesterday. He is not passing any flatus yet but he is not having any nausea or vomiting either. - Physical Exam Vitals/I&O's: Vital Signs Temp Pulse Resp BP Pulse Ox 99.4 F H 107 H 20 H 126/70 H 92 03/14/19 03:22 03/14/19 03:22 03/14/19 03:22 03/14/19 03:22 03/14/19 03:22 Oxygen Flow Rate (L/min) 3 Oxygen Delivery Method Room Air Weight: 236 lb 8.896 oz Body Mass Index (BMI) 35.9 Intake and Output for Last 24 Hours 03/12/19 03/13/19 03/14/19 23:59 23:59 23:59 Intake Total 1289.17 / 1289.17 3433.58 / 4133.58 1175 / 1175 Output Total 600 / 600 Balance 1289.17 / 1289.17 3433.58 / 3933.58 575 / 575 General: Alert, Oriented x3 Neck: No JVD Lungs: Normal air movement Abdomen: Soft, Tender Laboratory Results 03/13/19 05:16: Diff Path Review Reviewed 03/14/19 06:00: WBC 12.4 H, RBC 4.71, Hgb 14.2, Hct 43.2, MCV 91.7, MCH 30.1, MCHC 32.9, RDW Std Deviation 45.5 H, RDW Coeff of Bimal 13.3, Plt Count 227, MPV 10.6, Immature Gran % (Auto) 0.500, Neut % (Auto) 74.7 H, Lymph % (Auto) 12.1 L, [place] % (Auto) 12.0 H, Eos % (Auto) 0.3, Baso % (Auto) 0.4, Absolute Neuts (auto) 9.2 H, Absolute Lymphs (auto) 1.49, Nucleated RBC % 0 03/14/19 06:00: Sodium 136, Potassium 3.9, Chloride 103, Carbon Dioxide 30.0, Anion Gap 3 L, BUN 7, Creatinine 0.92, Estim Creat Clear Calc 99.13, Est GFR (MDRD) Af Amer 115, Est GFR (MDRD) Non-Af 95, BUN/Creatinine Ratio 7.6 L, Glucose 95, Calcium 7.5 L, Total Bilirubin 5.70 H, AST 79 H, ALT 68 H, Alkaline Phosphatase 101, Total Protein 6.3 L, Albumin 3.0 L, Globulin 3.3, Albumin/Globulin Ratio 0.9 Current Medications Acetaminophen (Tylenol) 650 mg PO Q6H PRN PRN PRN Reason: Pain Score 1-1010 Last Admin: 03/14/19 06:04 Dose: 650 mg Documented by: Hydromorphone HCl (Dilaudid Inj) 1 - 2 mg IV Q2H PRN PRN PRN Reason: Pain Score 6-1010 Last Admin: 03/14/19 00:48 Dose: 1 mg Documented by: Sodium Chloride () 250 mls @ 15 mls/hr IV .[id number] PRN PRN Reason: Saline Flush Last Infusion: 03/14/19 06:06 Dose: 0 mls/hr Documented by: Sodium Chloride () 250 mls @ 15 mls/hr IV .[id number] PRN PRN Reason: Additional IVPB Infusion Pantoprazole Sodium 40 mg/ (Sodium Chloride) 110 mls @ 330 mls/hr IV Q24 [facility] Last Infusion: 03/13/19 10:38 Dose: Infused Documented by: Sodium Chloride () 1,000 mls @ 125 mls/hr IV .Q8H [facility] Last Admin: 03/14/19 00:36 Dose: 125 mls/hr Documented by: Piperacillin Sod/Tazobactam Sod (Zosyn) 3.375 gm in 50 mls @ 12.5 mls/hr IV Q8 [facility] Last Admin: 03/14/19 05:57 Dose: 12.5 mls/hr Documented by: Sodium Chloride () 250 mls @ 15 mls/hr IV .[id number] PRN PRN Reason: Saline Flush Sodium Chloride () 250 mls @ 15 mls/hr IV .[id number] PRN PRN Reason: Additional IVPB Infusion Ondansetron HCl (Zofran) 4 mg IV Q6H PRN PRN PRN Reason: NAUSEA/VOMITING Sodium Chloride () 10 - 40 ml IV UD PRN PRN Reason: SALINE FLUSH Last Admin: 03/14/19 00:48 Dose: 10 ml Documented by: Medical Necessity - Tobacco Use Smoking Status: Never smoker Tobacco Use: Chew Assessment/Plan All Active Problems Acute cholecystitis (Acute) 44-year-old male status post laparoscopic cholecystectomy for acute cholecystitis. 1. The patient reports no flatus. He is not having any nausea or vomiting and he is still having significant pain. He had a significant amount of inflammation in the abdomen during his surgery and he did have a dilated colon during surgery yesterday. Patient likely has adynamic postoperative ileus. I will continue clear liquids until the patient passes flatus and then advance diet. Continue pain control and antibiotics. Jayson Ernandez MD Pager: [facility] [address] [place] [address], [address] [place] [address] Office:
--- NOTE | 2019-03-14 10:00 | CASEMGMT ---
RN RENU Face to Face with patient for initial transition planning/care coordination assessment. RN CM introduced self and role at [facility]. Patient lying in bed, alert and oriented. Patient willing to participate in assessment and is able to answer all questions appropriately. Care providers, pharmacy, and demographics verified. Patient wishes to discharge home, denies need for home health at this time. Patient states he has no further needs or concerns at this time. CM to follow for discharge planning needs that may arise. PCP: Lizette Specialists: none Preferred Pharmacy: Insurance: [employer] Prescription Benefit: yes Living Will/HPOA: none LNOK: son, mother Living Arrangements: Patient lives with son in 1 story home with 5 steps with railing at home. Patient is independent. Transportation: self/family DME/HHC: Patient denies any DME or HHC at this time. Disposition Plan: Patient to discharge home with family support and follow-up plans in place. Maylin BRINK, RN, CM
[2019-03-14] MEDS: 0.9% Normal Saline 1,000 ML 60 ML IV (17:43)
[2019-03-14] MEDS: oxyCODONE 5 MG Tablet PO ×2 (17:45→22:49)
[2019-03-14] MEDS: Docusate Sodium 100 MG Capsule PO (22:46)
[2019-03-15 03:30] VITALS: BP 153/107; PULSE 84; RESP 20; TEMP 37.1; O2SAT 94
[2019-03-15 04:00] VITALS: PULSE 89
[2019-03-15] MEDS: Piperacil/Tazobactam 3.375 GM/50 ML ML IV (05:06)
[2019-03-15] MEDS: oxyCODONE 5 MG Tablet PO ×2 (05:14→09:53)
--- NOTE | 2019-03-15 08:32 | DCINST_ITS ---
Discharge Diet: Light diet - advance as tolerated Discharge Activity: Return to Normal Activity, May Not Drive - for 2-3 days or while taking narcotic pain medicataions., May Shower Lifting Restrictions: 20 lbs for 2 weeks Additional Activity Instructions:: Pain medication may cause nausea. You should typically eat light foods as you take your pain medications. Pain medication may also cause constipation. If this is a problem for you, please discuss with your doctor. Call your doctor if your incision/area has: Continuous Slow Oozing, Sudden Increased Bleeding, Increased Pain/ Swelling, Increased Redness, Foul Smelling Discharge, Fever of 101 or Higher Call your doctor if you observe: Fever of 101 or Higher Suture Line Care: Avoid Pulling/Pushing, Avoid Pinching/Bending Additional Dressing/Incision Instructions:: Leave operative bandaids on for 2 days. When you remove dressing, leave Steri-Strips on until your follow-up appointment, or until the Steri-Strips fall off on their own. Allergies/Adverse Reactions: Allergies No Known Allergies Allergy (Verified 03/12/19 14:17) Medications to take at Discharge Dextroamphetamine/Amphetamine [Dextroamp-Amphetamin 20 mg Tab] 20 mg PO BID 03/12/19 Docusate Sodium [Colace] 100 mg PO BID 10 Days #20 cap 03/15/19 Oxycodone [Oxyir] 5 - 10 mg PO Q4H PRN PRN 7 Days #40 tablet 03/15/19 The following prescriptions were given: Docusate Sodium [Colace] 100 mg PO BID 10 Days #20 cap Transmission Status: [facility] to [id number] Oxycodone [Oxyir] 5 - 10 mg PO Q4H PRN PRN 7 Days #40 tablet PRN Reason: Pain Score 6-10/10 Transmission Status: [id number] Primary Care Physician: NOT,DEFINED [NON-STAFF] - Test Results: Test results from this visit will be discussed in further detail at your follow- up appointment, if applicable. Please Follow Up With: Jayson Ernandez MD When: Please call to schedule 2 week follow up appointment. [phone]
--- NOTE | 2019-03-15 08:33 | PCM.DC.SUM ---
Discharge Date and Diagnosis Date of Admission: 03/12/19 Date of Discharge: 03/15/19 - Primary Discharge Diagnosis Active and Suspected Problems Acute cholecystitis (Acute) Hospital Course and Treatment Imaging Results: Clinical Impression(s) from Imaging Studies Chest X-Ray 03/12/19 15:05 IMPRESSION: Nonacute portable x-ray examination of the chest. Electronically Signed: Syd Welsh MD ([place]) at 15:51 EST , Service support , Abdomen/Pelvis CT 03/12/19 15:09 IMPRESSION: 1. Circumferential wall thickening of the urinary bladder with mild pericystic induration suggesting cystitis. Correlation with urinalysis recommended. 2. Gallstones without CT evidence of acute cholecystitis. 3. Limited evaluation of the transverse and descending colon due to lack of distention. No pericolonic stranding/inflammation seen. Electronically Signed: Syd Welsh MD ([place]) at 16:16 EST , Service support , Abdomen Ultrasound 03/12/19 16:28 IMPRESSION: Borderline hepatomegaly. Positive sonographic Ralph sign with borderline gallbladder wall thickening. No evidence of pericholecystic fluid. Large gallstone with gallbladder sludge as above. Nonspecific echogenic appearance of the pancreas Electronically Signed: Yovany Hernandez DO at 19:42 EST Tel , Service support , Cholangiogram 03/13/19 13:39 IMPRESSION: Opacified intrahepatic and extra hepatic bile ducts are without evidence of filling defects/calculi. Opacified duodenal C-sweep appears unremarkable. There is a contrast leak in the gallbladder bed region. Electronically Signed: Angel Otto MD at 7:46 EST , Service support , Operations: cholecystecomy Procedures: None Summary of Care Provided: The patient is a 44 year old M was admitted with right upper quadrant pain and acute cholecystitis. Following day he was taken for laparoscopic cholecystectomy. He had a very inflamed gallbladder with large gallstones. Following day his pain was still severe. He was kept on antibiotics and his pain was well controlled. The following day after that he was tolerating a diet and discharged home. - Physical Exam Vitals/I&O's: Vital Signs Temp Pulse Resp BP Pulse Ox 98.7 F 89 20 H 153/107 H 94 03/15/19 03:30 03/15/19 04:00 03/15/19 03:30 03/15/19 03:30 03/15/19 03:30 Oxygen Flow Rate (L/min) 3 Oxygen Delivery Method Room Air Weight: 236 lb 8.896 oz Body Mass Index (BMI) 35.9 Intake and Output for Last 24 Hours 03/13/19 03/14/19 03/15/19 23:59 23:59 23:59 Intake Total 3433.58 / 4133.58 3950.42 / 4150.42 250 / 250 Output Total 3200 / 3900 2100 / 2100 Balance 3433.58 / 3933.58 750.42 / 250.42 -1850 / -1850 Current Medications Acetaminophen (Tylenol) 650 mg PO Q6H PRN PRN PRN Reason: Pain Score 1-10/10 Last Admin: 03/14/19 06:04 Dose: 650 mg Documented by: Docusate Sodium (Colace) 100 mg PO BID [facility] Last Admin: 03/14/19 22:46 Dose: 100 mg Documented by: Hydromorphone HCl (Dilaudid Inj) 1 - 2 mg IV Q2H PRN PRN PRN Reason: Pain Score 6-10/10 Last Admin: 03/14/19 15:45 Dose: 1 mg Documented by: Sodium Chloride () 250 mls @ 15 mls/hr IV .[id number] PRN PRN Reason: Saline Flush Last Infusion: 03/14/19 06:06 Dose: 0 mls/hr Documented by: Sodium Chloride () 250 mls @ 15 mls/hr IV .[id number] PRN PRN Reason: Additional IVPB Infusion Pantoprazole Sodium 40 mg/ (Sodium Chloride) 110 mls @ 330 mls/hr IV Q24 [facility] Last Infusion: 03/14/19 10:50 Dose: Infused Documented by: Piperacillin Sod/Tazobactam Sod (Zosyn) 3.375 gm in 50 mls @ 12.5 mls/hr IV Q8 [facility] Last Admin: 03/15/19 05:06 Dose: 12.5 mls/hr Documented by: Sodium Chloride () 250 mls @ 15 mls/hr IV .[id number] PRN PRN Reason: Saline Flush Sodium Chloride () 250 mls @ 15 mls/hr IV .[id number] PRN PRN Reason: Additional IVPB Infusion Sodium Chloride () 1,000 mls @ 60 mls/hr IV .[id number] [facility] Last Admin: 03/14/19 17:43 Dose: 60 mls/hr Documented by: Ondansetron HCl (Zofran) 4 mg IV Q6H PRN PRN PRN Reason: NAUSEA/VOMITING Oxycodone HCl (Oxyir) 5 - 10 mg PO Q4H PRN PRN PRN Reason: Pain Score 6-10/10 Last Admin: 03/15/19 05:14 Dose: 5 mg Documented by: Sodium Chloride () 10 - 40 ml IV UD PRN PRN Reason: SALINE FLUSH Last Admin: 03/14/19 15:46 Dose: 10 ml Documented by: Discharge Diet: Light diet - advance as tolerated Discharge Activity: Return to Normal Activity, May Not Drive - for 2-3 days or while taking narcotic pain medicataions., May Shower Additional Activity Instructions:: Pain medication may cause nausea. You should typically eat light foods as you take your pain medications. Pain medication may also cause constipation. If this is a problem for you, please discuss with your doctor. Call your doctor if your incision/area has: Continuous Slow Oozing, Sudden Increased Bleeding, Increased Pain/ Swelling, Increased Redness, Foul Smelling Discharge, Fever of 101 or Higher Call your doctor if you observe: Fever of 101 or Higher Suture Line Care: Avoid Pulling/Pushing, Avoid Pinching/Bending Additional Dressing/Incision Instructions:: Leave operative bandaids on for 2 days. When you remove dressing, leave Steri-Strips on until your follow-up appointment, or until the Steri-Strips fall off on their own. Home Medications: Medications to take at Discharge Dextroamphetamine/Amphetamine [Dextroamp-Amphetamin 20 mg Tab] 20 mg PO BID 03/12/19 Docusate Sodium [Colace] 100 mg PO BID 10 Days #20 cap 03/15/19 Oxycodone [Oxyir] 5 - 10 mg PO Q4H PRN PRN 7 Days #40 tab 03/15/19 Following Prescrptions Were Given to Patient: Docusate Sodium [Colace] 100 mg PO BID 10 Days #20 cap Transmission Status: [id number] Oxycodone [Oxyir] 5 - 10 mg PO Q4H PRN PRN 7 Days #40 tab PRN Reason: Pain Score 6-12/22 Transmission Status: [id number] Primary Care Physician: NOT,DEFINED [NON-STAFF] - Please Follow Up With: Jayson Ernandez MD When: Please call to schedule 2 week follow up appointment. [phone] Medical Necessity - Tobacco Use Smoking Status: Never smoker Tobacco Use: Chew Meaningful Use Info Meaningful Use Diagnoses (Choose all that apply): None applicable
[2019-03-15] MEDS: 0.9% Normal Saline 1,000 ML 60 ML IV (09:32)
[2019-03-15 09:40] VITALS: BP 157/95; PULSE 98; RESP 18; TEMP 37.3; O2SAT 98
[2019-03-15 11:36] VITALS: BP 158/78; PULSE 88; RESP 18; TEMP 37.2; O2SAT 97
== END 2019-03-15 11:34 | disposition home or self-care (01) | DRG 418 ==
LOC: ED 19:59 → MS3 21:06
PROVIDERS: Emergency Medicine; Admitting Provider Surgery; Emergency Provider Emergency Medicine; Visit Provider Surgery
PROC: 0FT44ZZ Resection of Gallbladder, Percutaneous Endoscopic Approach (ICD-10-PCS; CPT 47610; principal; 2019-03-13 12:25)
DX: K80.00 Calculus of gallbladder with acute cholecystitis without obstruction (principal); K56.0 Paralytic ileus; H91.90 Unspecified hearing loss, unspecified ear; Z23 Encounter for immunization
CPT/HCPCS: 36415; 71045; 74177; 74300; 76000; 76705; 80048; 80053; 80076; 81001; 83690; 83735; 84100; 84484; 85025; 88304; 93005; 99283; 99406; G0009; J7030; J7040; J7050; Q9967; 90686; A4216; J2405